=== PATIENT | male | born 2000 | race Two or more races ===

== ENCOUNTER 2023-12-23 17:56 | Emergency (ER) | payer OTHER ==
[~2023-12-23] VITALS: Ht 172.7 cm; Wt 62.6 kg
[2023-12-23 23:25] LABS: HEMATOCRIT 40.5 % (39.0-48.0); HEMOGLOBIN 14.2 g/dL (13-16.00); MEAN CORPUSCULAR HEMOGLOBIN 30.2 pg (27.00-32.0); MEAN CORPUSCULAR HGB CONC 35.1 g/dl (32.0-36.0); PLATELET COUNT 208 K/uL (150-450); RED BLOOD COUNT 4.71 M/uL (4.00-6.00); RED CELL DISTRIBUTION WIDTH 13.9 % (11.5-14.5)
[2023-12-23 23:47] LABS: CALCIUM 9.3 mg/dL (8.5-10.1); CREATININE SERUM 0.76 mg/dL (0.70-1.30); GFR 129.47; POTASSIUM 3.89 mEq/L (3.5-5.1)
[2023-12-24] MEDS ORDERED: ZYRTEC10 MG PO (00:23)
[2023-12-24] MEDS ORDERED: SINGULAIR10 MG PO (00:23)
[2023-12-24] MEDS ORDERED: DEXAMETHASONE4 MG PO (00:23)
[2023-12-24] MEDS ORDERED: MUCINEX D ER 61 EACH PO (00:23)
== END 2023-12-24 01:06 | disposition home or self-care (01) ==
LOC: ER 17:56
PROVIDERS: General Practice
DX: R53.81 Other malaise (principal); J06.9 Acute upper respiratory infection, unspecified; Z20.822 Contact with and (suspected) exposure to COVID-19

== ENCOUNTER 2024-10-12 11:39 | Emergency (ER) | payer OTHER ==
[~2024-10-12] VITALS: Ht 172.7 cm; Wt 65.8 kg
[~2024-10-12 11:39] MED LIST: DEXAMETHASONE4 MG PO; MUCINEX D ER 61 EACH PO; SINGULAIR10 MG PO; ZYRTEC10 MG PO
[2024-10-12 12:41] VITALS: BP 118/77; O2SAT 99
[2024-10-12] MEDS ORDERED: [UNRECOGNIZED DRUG - OTHER] (12:41)
[2024-10-12] MEDS ORDERED: ZENATANE40 MG (12:41)
[2024-10-12 16:26] LABS: HEMATOCRIT 41.5 % (39.0-48.0); HEMOGLOBIN 14.1 g/dL (13-16.00); MEAN CELL VOLUME 84.7 fL (80.0-100.00); MEAN CORPUSCULAR HEMOGLOBIN 28.8 pg (27.00-32.0); PLATELET COUNT 191 K/uL (150-450); RED CELL DISTRIBUTION WIDTH 13.6 % (11.5-14.5)
[2024-10-12] MEDS ORDERED: ACETAMINOPHEN500 M1 PO (18:51)
[2024-10-12] MEDS ORDERED: GILTUSS COUGH-118 M1 PO (18:51)
== END 2024-10-12 19:13 | disposition home or self-care (01) ==
LOC: ER 11:41
PROVIDERS: General Practice
DX: B34.9 Viral infection, unspecified (principal); Z20.822 Contact with and (suspected) exposure to COVID-19